=== PATIENT | male | born 1945 | race Caucasian/White ===

== ENCOUNTER 2021-02-19 14:48 | Inpatient (IN) ==
[2021-02-19] MEDS ORDERED: Naloxone 0.4 MG/ML INJ IVP PRN (17:01)
[2021-02-19] MEDS ORDERED: Ondansetron 4 MG/2 ML VIAL IVP PRN (17:01)
[2021-02-19] MEDS ORDERED: Acetaminophen 325 MG TABLET PO PRN (17:01)
[2021-02-19] MEDS ORDERED: *HR* HYDROcodone/Acet 5/325 mg TABLET PO PRN (17:03)
[2021-02-19 17:28] LABS: Hemoglobin 7.7 g/dL (12.9-16.9); Mean Corpuscular HGB Conc 32.1 g/dL (31.6-35.5); Mean Corpuscular Hemoglobin 28.8 pg (28.0-33.3); Mean Corpuscular Volume 89.9 fL (83.0-100.0); Mean Platelet Volume 10.2 fL (9.4-12.4); Platelet Count 237 K/mcL (140-400); Red Blood Count 2.67 M/mcL (4.19-5.50); Red Cell Distribution Width 14.3 % (11.5-14.5)
[2021-02-19 17:34] LABS: INR 2.8
[2021-02-19 17:46] LABS: BUN/Creatinine Ratio 29 (6-26); Blood Urea Nitrogen 39 mg/dL (8-23); Calcium 8.8 mg/dL (8.6-10.3); Carbon Dioxide 28 mEq/L (23-29); Chloride 102 mEq/L (98-107); Glucose 139 mg/dL (70-105); Osmolality,Calculated 294 (280-300); Potassium 4.8 mEq/L (3.5-5.1); Sodium 136 mEq/L (136-145); eGFR For African Americans > 60 (> 60); eGFR For Non-African Americans 52 (> 60)
[2021-02-19] MEDS: traZODone 50 MG TABLET PO SCH (22:52)
[2021-02-20 06:25] LABS: Hematocrit 23.2 % (37.5-50.1); Hemoglobin 7.4 g/dL (12.9-16.9); Mean Corpuscular HGB Conc 31.9 g/dL (31.6-35.5); Mean Corpuscular Hemoglobin 28.6 pg (28.0-33.3); Mean Corpuscular Volume 89.6 fL (83.0-100.0); Mean Platelet Volume 10.1 fL (9.4-12.4); Platelet Count 231 K/mcL (140-400); Red Blood Count 2.59 M/mcL (4.19-5.50); Red Cell Distribution Width 14.4 % (11.5-14.5); White Blood Count 7.4 K/mcL (4.3-11.1)
[2021-02-20 06:32] LABS: Prothrombin Time 22.3 Seconds (9.4-12.1)
[2021-02-20 06:39] LABS: BUN/Creatinine Ratio 27 (6-26); Blood Urea Nitrogen 34 mg/dL (8-23); Calcium 8.8 mg/dL (8.6-10.3); Carbon Dioxide 29 mEq/L (23-29); Chloride 102 mEq/L (98-107); Glucose 149 mg/dL (70-105); Osmolality,Calculated 294 (280-300); Potassium 4.3 mEq/L (3.5-5.1); Sodium 137 mEq/L (136-145); eGFR For African Americans > 60 (> 60); eGFR For Non-African Americans 57 (> 60)
[2021-02-20] MEDS: *HR* OxyCODONE/APAP 5/325 TABLET PO PRN ×2 (08:46→17:08)
[2021-02-20] MEDS: Aspirin Enteric Coated 81 MG Tablet PO SCH (08:46)
[2021-02-20] MEDS ORDERED: amLODIPine 5 MG TABLET PO SCH (09:00)
[2021-02-20] MEDS ORDERED: *HR* OxyCODONE/APAP 7.5/325 TABLET PO PRN (09:30)
[2021-02-20 17:04] LABS: Hematocrit 22.8 % (37.5-50.1); Hemoglobin 7.2 g/dL (12.9-16.9)
[2021-02-20 17:47] LABS: INR 1.6; Prothrombin Time 18.2 Seconds (9.4-12.1)
[2021-02-20] MEDS ORDERED: D5% in Water 1,000 ML IVC PRN (20:42)
[2021-02-20] MEDS ORDERED: *HR* Dextrose 50 % in Water (Syg) 50 ML SYRINGE IVP PRN (20:42)
[2021-02-20] MEDS ORDERED: Dextrose Gel 15 GM/37.5 ML TUBE PO PRN ×2 (20:42)
[2021-02-20] MEDS: traZODone 50 MG TABLET PO SCH (21:45)
[2021-02-20] MEDS: Insulin LISPRO 300 UNITS/3 ML VIAL SUBQ SCH (21:46)
[2021-02-20] MEDS ORDERED: 0.9 % Sodium Chloride 250 ML ONE (22:39)
[2021-02-21] MEDS: *HR* OxyCODONE/APAP 5/325 TABLET PO PRN ×3 (00:23→20:06)
[2021-02-21] MEDS ORDERED: amLODIPine 5 MG TABLET PO SCH (04:00)
[2021-02-21 06:01] LABS: Hematocrit 24.3 % (37.5-50.1); Hemoglobin 7.9 g/dL (12.9-16.9)
[2021-02-21] MEDS: Insulin LISPRO 300 UNITS/3 ML VIAL SUBQ SCH ×4 (07:38→20:02)
[2021-02-21] MEDS: amLODIPine 5 MG TABLET PO SCH (07:40)
[2021-02-21] MEDS: Aspirin Enteric Coated 81 MG Tablet PO SCH (07:57)
[2021-02-21 17:39] LABS: Hematocrit 27.2 % (37.5-50.1); Hemoglobin 8.7 g/dL (12.9-16.9)
[2021-02-21] MEDS: traZODone 50 MG TABLET PO SCH (20:06)
[2021-02-22 05:42] LABS: Hematocrit 26.5 % (37.5-50.1); Hemoglobin 8.5 g/dL (12.9-16.9)
[2021-02-22 05:47] LABS: INR 1.3; Prothrombin Time 14.7 Seconds (9.4-12.1)
[2021-02-22 05:59] LABS: BUN/Creatinine Ratio 27 (6-26); Blood Urea Nitrogen 34 mg/dL (8-23); Calcium 8.5 mg/dL (8.6-10.3); Carbon Dioxide 29 mEq/L (23-29); Chloride 103 mEq/L (98-107); Glucose 134 mg/dL (70-105); Osmolality,Calculated 294 (280-300); Potassium 3.9 mEq/L (3.5-5.1); Sodium 137 mEq/L (136-145); eGFR For African Americans > 60 (> 60); eGFR For Non-African Americans 55 (> 60)
[2021-02-22] MEDS: Aspirin Enteric Coated 81 MG Tablet PO SCH (07:25)
[2021-02-22] MEDS: amLODIPine 5 MG TABLET PO SCH (07:25)
[2021-02-22 07:26] VITALS: RESP 18
[2021-02-22] MEDS: *HR* OxyCODONE/APAP 5/325 TABLET PO PRN (07:26)
[2021-02-22] MEDS: Insulin LISPRO 300 UNITS/3 ML VIAL SUBQ SCH ×2 (07:26→12:36)
[2021-02-22 11:13] VITALS: BP 99/56; PULSE 61; TEMP 98.1; O2SAT 99
== END 2021-02-22 13:40 | disposition home health service (06) | DRG 605 ==
LOC: INPGRE
PROVIDERS: ADMIT Family Medicine; ATTEND Family Medicine